=== PATIENT | male | born 1970 ===

== ENCOUNTER 2025-09-23 16:50 | Emergency (ER) | payer MEDICARE, MEDICAID ==
[~2025-09-23] VITALS: Ht 170.2 cm; Wt 78.4 kg
[2025-09-23] MEDS ORDERED: LURA60TA4 PO (17:24)
[2025-09-23] MEDS ORDERED: TAMS-55 PO (17:24)
[2025-09-23] MEDS ORDERED: SULF500T59 PO (17:24)
[2025-09-23] MEDS ORDERED: VENL150T3 PO (17:24)
[2025-09-23] MEDS ORDERED: BUS15T PO (17:24)
[2025-09-23 18:29] LABS: LEUKOCYTE ESTERASE ,URINE NEGATIVE (Neg); NITRITES, URINE NEGATIVE (Neg); OCCULT BLOOD,URINE NEGATIVE (Neg)
[2025-09-23 18:30] LABS: UA COLLECTION TYPE NON-SPECIFIED
[2025-09-23 18:43] LABS: URINE AMPHETAMINE SCREEN NEGATIVE (Neg); URINE BARBITUATE SCREEN NEGATIVE (Neg); URINE BENZODIAZEPINES SCREEN NEGATIVE (Neg); URINE CANNABINOID SCREEN NEGATIVE (Neg); URINE COCAINE SCREEN NEGATIVE (Neg); URINE METHADONE SCREEN NEGATIVE (Neg); URINE OPIATE SCREEN NEGATIVE (Neg); URINE PHENCYCLIDINE SCREEN NEGATIVE (Neg)
--- NOTE | 2025-09-23 18:43 | Physician Documentation ---
History of Present Illness ~ Chief Complaint: Mental Health Eval Stated Complaint: MH Time Seen by MD: 17:58 HPI 55-year-old male with a history of TBI, depression, and bipolar disorder who presents from a transitional living facility after being released from longterm falling 11 months of incarceration, patient reports he feels that he can not care for himself and has a feeling of not wanting to be alive anymore, patient reports that during his incarceration he did have suicidal thoughts with intention and made an attempt to hang himself during his incarceration though he currently reports no active plan or intention of acting on suicidal thoughts. Patient reports that he was kicked out of the transitional living facility as he was not caring for himself and the facility felt he needed a higher level of care. Patient repeatedly reporting I do not know" and I just can not take care of myself remaining questions and when further questioned on his ability to care for himself and in discussion of this is a safety planning. Patient reports no physical symptoms reporting feels physically well. Medication Reconciliation Allergies: Coded Allergies: No Known Allergies (Unverified , 09/23/25) Scheduled Buspirone HCl (Buspirone HCl), 1 TAB PO BID, (Reported) Lurasidone HCl (Lurasidone HCl), 1 TAB PO HS, (Reported) Sulfasalazine* (Azulfidine*), 2,000 MG PO BID, (Reported) Tamsulosin Hcl* (Flomax*), 1 CAP PO DAILY, (Reported) Venlafaxine HCl (Venlafaxine HCl ER), 1 TAB PO HS, (Reported) Past Medical History Past Medical History: *HEDIS MANAGER* (Traumatic brain injury), Intracerebral Hemorrahage, Anxiety, Bipolar, Depression Review of Systems ROS As stated above in the HPI, otherwise all systems are reviewed and negative. Physical Exam Vital Signs: Temperature: 97.8, Source: Oral, Heart Rate: 89, Respiratory Rate: 16, BP: 155/96, Pulse Oximetry: 98, Weight: 78.400 Oxygen Flow Rate: 0 Physical Exam VITALS: Reviewed and as above. GENERAL: Alert, nontoxic appearing, no apparent distress. HEENT: PERRLA, EOMI RESPIRATORY: No increased work of breathing, no respiratory distress, speaking in full clear sentences, clear lung sounds in all gotti CHEST: Nontender to palpation CV: Regular rate and rhythm no murmur BACK: Nontender to palpation, no central spinal tenderness, no CVA tenderness GI: Soft, nontender, no rebound, no guarding MUSCULOSKELETAL: No visible obvious deformities NEURO: GCS 15 PSYCH: Flat mood and affect, making statements of suicidal thoughts without intent, no HI Progress Results/Orders Results/Orders Orders - GISELE GUZMAN Med Rec (09/23/25 18:18) 1799.11 (09/23/25 18:18) Close Observation Level (09/23/25 18:18) Regular Diet (09/24/25 Breakfast) Completed Orders - GISELE GUZMAN Cbc/Diff (09/23/25 18:18) Urinalysis (09/23/25 18:18) Drug Screen, Urine (09/23/25 18:18) Ethanol (09/23/25 18:18) TSH (09/23/25 18:18) BMP (09/23/25 18:18) Medications Received in ER Medications (Trade) Dose Ordered Sig/Jose C Route PRN Reason Start Time Stop Time Status Last Admin Dose Admin (Ativan tablet) 2 mg ONCE ONCE PO 09/23/25 23:20 09/23/25 23:21 DC 09/23/25 23:34 2 MG Vital Signs 09/23/25 09/23/25 09/23/25 09/23/25 16:53 17:30 23:09 23:34 Temp 97.8 Pulse 89 Resp 18 16 16 B/P (MAP) 155/96 Pulse Ox 98 O2 Flow Rate 0 Laboratory Tests Test 09/23/25 17:01 09/23/25 18:39 Urine Specimen Description Non-specified Urine Color Yellow Urine Clarity Clear Urine pH 6.0 Urine Specific [place] 1.025 Urine Protein Negative Urine Glucose (UA) Negative Urine Ketones Negative Urine Occult Blood Negative Urine Nitrite Negative Urine Bilirubin Negative Urine Urobilinogen 0.2 Urine Leukocyte Esterase Negative Volume Urine Centrifuged 10 ml Urine Comment Urine Opiates Screen Negative Urine Methadone Screen Negative Urine Fentanyl Screen Negative Urine Barbiturates Screen Negative Urine Phencyclidine Screen Negative Urine Amphetamines Screen Negative Urine Benzodiazepines Screen Negative Urine Cocaine Screen Negative Urine Cannabinoids Screen Negative Drug Screen Comment SARS-CoV-2 Antigen (Rapid) Negative White Blood Count 9.2 Red Blood Count 5.01 Hemoglobin 15.3 Hematocrit 43.9 Mean Corpuscular Volume 87.7 Mean Corpuscular Hemoglobin 30.5 Mean Corpuscular Hemoglobin Concent 34.8 Red Cell Distribution Width 14.2 Platelet Count 295 Mean Platelet Volume 6.6 L Neutrophils (%) (Auto) 68.3 Lymphocytes (%) (Auto) 24.5 Monocytes (%) (Auto) 5.5 Eosinophils (%) (Auto) 1.2 Basophils (%) (Auto) 0.5 Neutrophils # (Auto) 6.3 Lymphocytes # (Auto) 2.3 Monocytes # (Auto) 0.5 Eosinophils # (Auto) 0.1 Basophils # (Auto) 0.0 CBC Comment Sodium Level 138 Potassium Level 3.8 Chloride Level 105 Carbon Dioxide Level 25.9 Anion Gap 7 L Blood Urea Nitrogen 13 Creatinine 0.83 Estimated GFR/1.73 m2 > 90 BUN/Creatinine Ratio 15.7 Glucose Level 104 Calcium Level 8.7 Albumin 4.1 Thyroid Stimulating Hormone (TSH) 1.49 Chemistry Comments Ethyl Alcohol Level < 10 Medical Decision Making Additional information obtaine: N/A Findings This 55-year-old male presented from a transitional living program with reports of being unable to care for himself and suicidal thoughts without plan or active intent though with history of recent suicidal ideation with plan and intent. Patient was not able to elaborate on reasons for feeling he was unable to care for himself and unable to form a safety plan should he be discharged from the emergency department, patient repeatedly reported having a feeling of not wanting to be alive anymore, therefore he was placed on a 1799 mental health hold for grave disability and danger to himself. Patient is otherwise well- appearing reporting no physical symptoms and his physical exam was benign. All lab work reassuring without significant abnormality. Patient's he is appropriate for outpatient management and is medically cleared for evaluation by [facility] and or transferred to psychiatric/mental health facility. Transfer orders for [facility]: At this time there is no evidence of an emergent medical condition that would preclude (admission/transfer) to a psychiatric unit via [facility] protocol for further psychiatric, as well as medical evaluation and treatment. At this time I have no reason to believe that transfer via [facility] protocol would have serious medical compromise in the patient's health. Differential Dx:Considerations: Include: Alcohol abuse, Anxiety, Bipolar disorder, Conversion disorder, Depression, Encephaloathy, Homicidal, Panic disorder, Personality disorder, Schizophrenia, Substance abuse, Suicidal, Other (Malingering) Departure Time of Disposition: 19:45 [facility]: [facility] Impression: Primary Impression: Mental disorder Additional Impressions: Suicidal ideation Grave disability Condition: Stable Discharge Instructions: Suicidal Feelings: How to Help Yourself Additional Instructions: Transfer orders for [facility]: At this time there is no evidence of an emergent medical condition that would preclude (admission/transfer) to a psychiatric unit via [facility] protocol for further psychiatric, as well as medical evaluation and treatment. At this time I have no reason to believe that transfer via [facility] protocol would have serious medical compromise in the patient's health. Please follow up with your primary care provider in the next few days. Please return to the emergency department for any new or worsening concerning symptoms. Referrals: NO PRIMARY CARE PROVIDER (PCP) Education Educated: Patient Educated regarding: diagnosis, treatment, prognosis, need for follow up Signature Scribe Signature: No scribe Attestation: The note accurately reflects work and decisions made by me.LUCY Amos 09/23/25 19:46 GISELE GUZMAN Sep 23, 2025 18:43
[2025-09-23 18:47] LABS: MEAN PLATELET VOLUME 6.6 FL (7.4-10.4); RED CELL DISTRIBUTION WIDTH 14.2 % (11.5-14.5)
[2025-09-23 19:14] LABS: CREATININE 0.83 MG/DL (0.60-1.10); ETHANOL < 10 MG/DL (<10); TOTAL CARBON DIOXIDE 25.9 MMOL/L (24-32); eCRCL 92 ML/MIN; eGFR > 90 ML/MIN
[2025-09-24] MEDS: loperamide 2mg capsule PO ONE (08:38)
[2025-09-24] MEDS: venlafaxine XR 75mg capsule (Q24H) PO SCH (08:39)
[2025-09-24] MEDS: busPIRone 15mg tablet PO SCH (08:39)
[2025-09-25 05:46] VITALS: TEMP 97.7
[2025-09-25] MEDS: loperamide 2mg capsule PO ONE (09:21)
[2025-09-25 12:04] VITALS: BP 129/89; PULSE 101; RESP 16; O2SAT 98
== END 2025-09-25 12:04 ==
LOC: ER 16:51
DX: F99 Mental disorder, not otherwise specified (principal); F31.9 Bipolar disorder, unspecified; F41.9 Anxiety disorder, unspecified; Z79.899 Other long term (current) drug therapy; Z20.822 Contact with and (suspected) exposure to COVID-19; Z73.6 Limitation of activities due to disability
CPT/HCPCS: 36415; 80048; 80305; 80320; 81003; 84443; 85025; 87811; 99285